=== PATIENT | female | born 1960 | race Caucasian/White ===

== ENCOUNTER 2018-05-10 09:45 | Outpatient (CLI) | payer OTHER | END 2018-05-10 09:46 | disposition home or self-care (01) | LOC: SC 09:45 | PROVIDERS: ATTEND Nurse Practitioner Family | DX: G47.33 Obstructive sleep apnea (adult) (pediatric) (principal); E66.01 Morbid (severe) obesity due to excess calories; Z68.42 Body mass index [BMI] 45.0-49.9, adult | CPT/HCPCS: 99204; 99212 ==

== ENCOUNTER 2018-12-01 01:56 | Emergency (ER) | payer OTHER ==
--- NOTE | 2018-12-01 02:40 | ED Physician Documentation ---
PD HPI DYSPNEA - Stated complaint Stated Complaint: COUGHING - Chief complaint Chief Complaint: Resp - History obtained from History obtained from: Patient - History of Present Illness Timing - onset: How many days ago (5) Timing - details: Gradual onset, Intermittant, Waxing and waning Pain level max: 0 Pain level now: 0 Improved by: Rest Worsened by: Exertion Associated symptoms: Fever (subjective (did not measure temperature at home)), Cough, Wheezing. 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 Decreasing relief with albuterol MDI. Tonight, she had severe dyspnea and coughing but this improved en route to ED and she feels well by the time of this H+P Review of Systems Constitutional: reports: Fever (subjective), Chills, Sweats. denies: Fatigue Cardiac: reports: Reviewed and negative Respiratory: reports: Dyspnea, Cough, Wheezing. 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 - Present Medications Home Medications: Ambulatory Orders Medication Instructions Recorded Confirmed Albuterol Sulf [Ventolin Hfa] 200 puffs INH 12/01/18 amLODIPine [Norvasc] 5 mg PO DAILY 12/01/18 12/01/18 predniSONE [Prednisone] 40 mg PO DAILY 4 Days #8 tablet 12/01/18 - Allergies Allergies/Adverse Reactions: Allergies Allergy/AdvReac Type Severity Reaction Status Date / Time Penicillins AdvReac Unknown Verified 12/01/18 02:08 Sulfa (Sulfonamide AdvReac Unknown Verified 12/01/18 02:07 Antibiotics) - Social History Does the pt smoke?: No Smoking Status: Never smoker Does the pt drink ETOH?: No Does the pt have substance abuse?: No - Immunizations Immunizations are current?: Yes - POLST Patient has POLST: No PD ED PE NORMAL - Vitals Vital signs reviewed: Yes - General General: Alert and oriented X 3, No acute distress, Well developed/nourished - HEENT HEENT: Moist mucous membranes, Pharynx benign - Neck Neck: Supple, no meningeal sign - Cardiac Cardiac: RRR, No murmur - Respiratory Respiratory: No respiratory distress, Clear bilaterally - Derm Derm: Normal color, Warm and dry - Extremities Extremities: No edema Results - Vitals Vitals: Vital Signs - 24 hr 12/01/18 12/01/18 12/01/18 01:57 02:21 03:48 Temperature 36.7 C Heart Rate 84 81 Respiratory 18 16 18 Rate Blood Pressure 147/74 H 149/91 H O2 Saturation 97 96 12/01/18 05:03 Temperature Heart Rate 87 Respiratory 18 Rate Blood Pressure 141/98 H O2 Saturation 95 Oxygen O2 Source Room air - Labs Labs: Laboratory Tests 12/01/18 02:55 Influenza A (Rapid) Negative Influenza B (Rapid) Negative - Rads (name of study) chest xray Radiology: Prelim report reviewed, See rad report PD MEDICAL DECISION MAKING - ED course Complexity details: reviewed results, re-evaluated patient, considered differential, d/w patient Departure - Departure Disposition: 01 Home, Self Care Clinical Impression: URI (upper respiratory infection) Condition: Good Instructions: ED Reactive Airway Disease, ED Upper Resp Infec No Abx Tx Follow-Up: [facility] [Provider Group] Prescriptions: predniSONE [Prednisone] 40 mg PO DAILY 4 Days #8 tablet Discharge Date/Time: 12/01/18 05:04
--- NOTE | 2018-12-01 04:33 | XRAY Report ---
Reason: dyspnea, cough Procedure Date: 12/01/2018 Accession Number: [id number] / [id number] Procedure: XR - Chest 2 View X-Ray CPT Code: 82387 FULL RESULT: EXAM: CHEST RADIOGRAPHY EXAM DATE: 12/01/2018 03:22 AM. CLINICAL HISTORY: Dyspnea, cough. COMPARISON: None. TECHNIQUE: 2 views. FINDINGS: Lungs/Pleura: There are minimal interstitial changes in the lingula otherwise the lungs are clear. There is a density in the left upper lobe which appears to represent calcified cartilage at the end of the first rib. There are no pleural effusions. Mediastinum: Heart and mediastinal contours are unremarkable. Other: None. IMPRESSION: 1. No acute infiltrates. RADIA
[2018-12-01 05:04] VITALS: BP 141/98
== END 2018-12-01 05:04 | disposition home or self-care (01) ==
LOC: ED 01:56
DX: J06.9 Acute upper respiratory infection, unspecified (principal); I10 Essential (primary) hypertension; J45.909 Unspecified asthma, uncomplicated
CPT/HCPCS: 71046; 87275; 87276; 99283

== ENCOUNTER 2019-08-05 10:48 | Outpatient (CLI) | payer OTHER ==
[2019-08-05 11:47] VITALS: BP 118/74
--- NOTE | 2019-08-05 11:47 | SLEEP CARE CONSULTATION ---
Information from patient questionnaire entered by Deja Colon. I have reviewed and concur with the information entered by Deja Colon. This document represents the service I personally performed and the decisions made by me, Della Coker, RN, MSN, AOC DIRECTOR COMBAT OPERATIONS OFFICER. History of Present Illness Previous diagnosis: Moderate, Obstructive Sleep Apnea-Hypopnea Syndrome AHI: 16.5 Reason for follow up: annual Equipment obtained from: [facility] (having difficulty getting supplies despite repeated attempts.) Mask style: Nasal (N20 - small) Mask brand: Resmed Backup mask available: Yes Last cushion change: 1 month Prior sleep studies: Yes CPAP Compliance Data - Data Reviewed with Patient Average duration of nightly device use: 6.5 hours Compliance rate %: 97 Current pressure setting (cmH2O): 7-10 Humidity settin-4 Heated hose setting: unknown Average residual AHI: 1.0 Subjective Patient concerns: reports: nasal congestion, epistaxis (just last 2 days, cold dry weather - scant amount noted in tissue when blew nose - feels due to dust from estate clearing. ). denies: aerophagia, mask discomfort, air blowing in eyes, mask leak noise, condensation in mask/hose, dry mouth, nose, throat Observed to snore while using device: No Current pressure setting perceived as: comfortable On therapy, patient: reports: sleeping better, awakening more refreshed, being more awake and alert during the day, more rested overall. denies: drowsiness while driving Initial [place] Sleepiness Scale score: 3 Current [place] Sleepiness Scale score: 2 Allergies and Home Medications Known drug allergies: Yes (see list ) Home medication list reviewed: Yes Allergy and home medication list: Medication Name (generic/name brand) Strength & Dosage Amlodipine Besylate 5mg tab one daily Albuterol MDI As needed Refresh Dry Eye As needed Olopatadine 0.1% ophthalmic solution As needed Flonase prn Review of Systems Review of systems same as previous: No (left breast lumpectomy - benign ) Physical Exam Blood Pressure: 118/74 Cuff size: wrist Heart Rate: 83 O2 Saturation: 96 Height: 5 ft 6.25 in Weight: 304 lb 6.4 oz Weight change since last visit: gained 12 pounds Body Mass Index: 48.7 BMI Classification: Obesity Class 3 Impression and Plan 1. Obstructive Sleep Apnea-Hypopnea Syndrome,moderate , with good treatment compliance and good apnea control. On CPAP therapy, the patient has better sleep quality and is more rested overall. For her supply concerns, she was recently informed that [facility] is no longer covered by her insurance. Thus I will have my implementation coordinator inform her of her options for new DME and I will complete a DWO prescription. To reduce condensation she was instructed to increase heated hose. She was also instructed to increase humidity for dryness and nasal congestion. Since patient has gained weight with stress of parents and estate resolution, I discussed how her current BMI is is 48 which can not only increase her apnea risk but CPAP pressure requirements and overall health risks. She is advised to lose weight and agreed. Her current auto CPAP ra nge should accomodate some weight loss as she is using the top range. Symptoms to report for pressure adjustment discussed. I advised her to reduce portions and modify content to whole foods and reduce refined foods. AANP handout for learning new skills for healthier weight given. She is also advised to discuss her weight goals with PCP and a referral to operating room manager. 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 Patient's apnea severity and rationale for treatment to reduce apnea, improve sleep quality and reduce cardiovascular and cerebrovascular events was reviewed. Since her apnea is more severe supine, she is advised to avoid supine sleep if unable to use CPAP and elevate head of bed 30-40 degrees to reduce apnea risk. I also reviewed the benefit of consistent device use of CPAP for hypertension. * Continue CPAP pressure at 7-10 cmH2O * Transfer to new DME * Adjust humidity and heated hose * Use saline nasal spray more frequently as directed. * Notify me if snoring with mask or feeling that the pressure is too much or too little * Attempt to lose weight * Return for follow up in 1 year, or sooner if concerns arise I spent 100% of this 35 minute visit face to face with the patient with greater than 50% of this was spent time counseling the patient and coordination of care.
== END 2019-08-05 10:49 | disposition home or self-care (01) ==
LOC: SC 10:48
PROVIDERS: ATTEND Nurse Practitioner Family
DX: G47.33 Obstructive sleep apnea (adult) (pediatric) (principal); E66.9 Obesity, unspecified; Z68.42 Body mass index [BMI] 45.0-49.9, adult
CPT/HCPCS: 99212; 99214

== ENCOUNTER 2020-01-19 22:16 | Emergency (ER) | payer OTHER ==
[2020-01-19 22:46] VITALS: BP 141/89
[2020-01-19] MEDS ORDERED: TETANUS/DIPHTHERIA/PERTUSSIS 0.5 ML SYRINGE IM ONE (23:10)
--- NOTE | 2020-01-19 23:24 | ED Physician Documentation ---
PD HPI UPPER EXT INJURY - Stated complaint Stated Complaint: FINGER LAC - Chief complaint Chief Complaint: Trauma Ext - History obtained from History obtained from: Patient (She cut her finger, the right fourth on a mandolin slicer at home just prior to arrival. 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 - Present Medications Home Medications: Ambulatory Orders Medication Instructions Recorded Confirmed Albuterol Sulf [Ventolin Hfa] 200 puffs INH 12/01/18 amLODIPine [Norvasc] 5 mg PO DAILY 12/01/18 12/01/18 - Allergies Allergies/Adverse Reactions: Allergies Allergy/AdvReac Type Severity Reaction Status Date / Time Penicillins AdvReac Unknown Verified 01/19/20 22:45 Sulfa (Sulfonamide AdvReac Unknown Verified 01/19/20 22:45 Antibiotics) - Social History Does the pt smoke?: No Smoking Status: Never smoker Does the pt drink ETOH?: No Does the pt have substance abuse?: No - Immunizations Immunizations are current?: Yes - POLST Patient has POLST: No PD ED PE NORMAL - Vitals Vital signs reviewed: Yes - General General: Alert and oriented X 3, No acute distress - Extremities Extremities: Other (There is a shallow flap laceration on the tip of the fourth finger pulp without nail involvement) - Neuro Neuro: Alert and oriented X 3, Normal speech Results - Vitals Vitals: Vital Signs - 24 hr 01/19/20 22:42 Temperature 36.8 C Heart Rate 83 Respiratory 20 Rate Blood Pressure 141/89 H O2 Saturation 96 Oxygen O2 Source Room air Procedures - Laceration (location) Right fourth finger Length in cm: 1 Wound type: Flap, Superficial Wound Preparation: Irrigated copiously NS Skin layer closure: Dermabond Other: Tetanus booster given Complexity: Simple Departure - Departure Disposition: 01 Home, Self Care Clinical Impression: Finger laceration Qualifiers: Encounter type: initial encounter Finger: ring finger Damage to nail status: without damage Foreign body presence: without foreign body Laterality: right Qualified Code(s): S61.214A - Laceration without foreign body of right ring finger without damage to nail, initial encounter Condition: Good Record reviewed to determine appropriate education?: Yes Instructions: ED Laceration Ext Skin Glue Comments: Reapply a little bit of superglue every day or 2 for the next week to keep it together. Return for new or worsening symptoms.
== END 2020-01-19 23:32 | disposition home or self-care (01) ==
LOC: ED 22:16
DX: S61.214A Laceration without foreign body of right ring finger without damage to nail, initial encounter (principal); W45.8XXA Other foreign body or object entering through skin, initial encounter; Y93.G1 Activity, food preparation and clean up; I10 Essential (primary) hypertension
CPT/HCPCS: 12001; 90471; 99283

== ENCOUNTER 2020-08-06 13:11 | Outpatient (CLI) | payer OTHER ==
--- NOTE | 2020-08-06 11:04 | SLEEP CARE CONSULTATION ---
Information from patient questionnaire entered by Ksenia Chakraborty. I have reviewed and concur with the information entered by Ksenia Chakraborty. This document represents the service I personally performed and the decisions made by me, Della Coker, RN, MSN, LABORER VEGETABLE FARM. History of Present Illness Service Date and Time: 08/06/2020 1030 Previous diagnosis: Moderate, Obstructive Sleep Apnea-Hypopnea Syndrome AHI: 16.5 (in 2017) Reason for follow up: annual (last seen 08/2019) Equipment type: CPAP Equipment obtained from: [employer] (getting supplies as needed since transfer from [facility]) Mask style: Nasal Mask brand: Resmed (N20 - small) Backup mask available: Yes Last cushion change: 1 week Prior sleep studies: Yes Year and Where: [address] [place] [address] Sleep Lab Type of Sleep Study: Polysomnography CPAP Compliance Data - Data Reviewed with Patient Average duration of nightly device use: 7 hr 18 min Compliance rate %: 99 (180 days) Current pressure setting (cmH2O): 7-10 Humidity settin Heated hose setting: ? Average residual AHI: 1.1 Subjective Patient concerns: reports: aerophagia (once only), mask discomfort (noted right before needs to change mask), air blowing in eyes (noted right before needs to change mask cushion ), mask leak noise (Mask discomfort and air leaks right before changes every two weeks.), condensation in mask/hose (nightly waking her to moisture in mask even with reduction of humidity), nasal congestion (especially since recent sinus infection), dry mouth, nose, throat (dry mouth and nose that was resolved with increased humidity). denies: epistaxis Observed to snore while using device: No Current pressure setting perceived as: comfortable On therapy, patient: reports: sleeping better, awakening more refreshed, being more awake and alert during the day, more rested overall. denies: drowsiness while driving Initial [place] Sleepiness Scale score: 3 (in 2018) Current [place] Sleepiness Scale score: 1 Allergies and Home Medications Known drug allergies: Yes Home medication list reviewed: No (started thyroid medication - unknown name) Review of Systems Review of systems same as previous: Yes Physical Exam Height: 5 ft 6 in Weight: 285 lb (home weight) Weight change since last visit: lost 20 pounds Body Mass Index: 46.0 BMI Classification: Morbidly Obese Impression and Plan 1. Obstructive Sleep Apnea-Hypopnea Syndrome, moderate, with good treatment compliance and good apnea control. On CPAP therapy, the patient has better sleep quality and is more rested overall. Nasal congestion can be reduced with increasing the CPAP humidity and heated hose as discussed so to reduce condensation effects currently having. Saline nasal spray can also be used prior to CPAP to clear nasal secretions and wash off any nasal allergens to facilitate nasal breathing. In addition, a steamy shower before bed will often assist nasal drainage. I also discussed use of a sinus flush if saline nasal spray is insufficient that can be used to reduce symptoms. This treatment can also be used routinely as discussed. Patient instructed on importance of using distilled or cooled boiled tap water per manual instructions. To reduce mask leaks, patient advised to wash mask cushion daily rather intermittently. This can be done after brushing teeth to incorporate in her daily routine easier. Patient has lost about 20 pounds since last seen with a goal of losing about 140 more pounds slowly by changing diet. She is working with a PA for her weight management. Patient was praised for her progress. Currently patients BMI is 46.0 obesity class Morbidly Obese. Obesity increases the risk of apnea, CPAP pressure requirements and overall health risks especially cardiovascular and diabetes. I also reviewed benefit of weight loss to her blood pressure. She is monitoring blood pressure and reporting to her provider in hopes to reduce hypertensive medication in future. Thus patient is advised to continue to lose weight. The patient's CPAP pressure was changed to [id number] to accommodate future weight loss with rationale discussed. Symptoms to report for additional pressure adjustment discussed. If patient device starts making clicking noise again, she is advised to contact [facility] for trouble shooting. If repair needed, a loaner device can be given while her CPAP is repaired. Travel with CPAP discussed to prepare for upcoming trip. CPAP can be taken on most airlines as a free medical carry on. Please check your airline. It is also recommended to bring an extra mask or cushion in the event of breakage as well as an extra filter. Patient's apnea severity and rationale for treatment to reduce apnea, improve sleep quality and reduce cardiovascular and cerebrovascular events was reviewed. I also reviewed the benefit of consistent device use of CPAP for hypertension. * * Change auto CPAP pressure to 6-10 cmH2O * Implement methods to reduce nasal congestion, condensation, mask leaks / irritation and improve CPAP travel. * Notify me if snoring with mask or feeling that the pressure is too much or too little * Continue to lose weight * Call this office if any problems using CPAP * Return for follow up in 1 year , or sooner if concerns arise Visit Type: Telehealth Video Video Type: Doximity Patient Location: Home Location of Provider: Home Patient agrees and consents to this telehealth visit type: Yes Patient agrees to have their insurance billed: Yes Time Spent with Patient (minutes): 31 Provider Statement: I spent 100% of the Telehealth Video Call with the patient with greater than 50% spent counseling the patient and coordination of care.
== END 2020-08-06 13:12 | disposition home or self-care (01) ==
LOC: SC 13:11
PROVIDERS: ATTEND Nurse Practitioner Family
DX: G47.33 Obstructive sleep apnea (adult) (pediatric) (principal); E66.01 Morbid (severe) obesity due to excess calories; Z68.42 Body mass index [BMI] 45.0-49.9, adult

== ENCOUNTER 2021-08-31 08:00 | Outpatient (CLI) | payer OTHER | END 2021-08-31 23:59 | LOC: LAB 08:00 | PROVIDERS: ATTEND Physician Assistant | DX: U07.1 COVID-19 (principal) ==

== ENCOUNTER 2023-01-24 11:31 | Outpatient (CLI) | payer OTHER ==
--- NOTE | 2023-01-24 12:39 | SLEEP CARE CONSULTATION ---
Information from patient questionnaire entered by Brooke Grimes. I have reviewed and concur with the information entered by Brooke Grimes. This document represents the service I personally performed and the decisions made by me, Jyoti Jalloh ARNP. History of Present Illness Service Date and Time: 01/24/2023 1131 Previous diagnosis: Moderate, Obstructive Sleep Apnea-Hypopnea Syndrome AHI: 16.5 (in 2016) Reason for follow up: annual (LAST SEEN 08/2020) Equipment type: CPAP (RESMED Airsense 10, s/u 05/2017; SD CARD NEEDED) Equipment obtained from: [employer] (getting supplies as needed) Mask style: Nasal Mask brand: Resmed (N20) Backup mask available: Yes (old mask) Last cushion change: yesterday Prior sleep studies: Yes Year and Where: [facility] Sleep Lab Type of Sleep Study: Polysomnography HPI additional information: MAICOL KNIGHT was diagnosed to have moderate, AHI 16.5, obstructive sleep apnea-hypopnea syndrome and returned today for CPAP therapy annual follow-up. Sleep Study - Results Type of Sleep Study: Polysomnography Prior sleep studies: Yes Year and Where: [address] [place] [address] Sleep Lab CPAP Compliance Data - Data Reviewed with Patient Average duration of nightly device use: 7 HRS 15 MINS Compliance rate %: 100 (10/25/22-01/02/23; 90/90 days used) Current pressure setting (cmH2O): 6-10 Average residual AHI: 0.9 Average large leak: 4.1 L/min Subjective Patient concerns: reports: air blowing in eyes (when mask needs to be changed). denies: aerophagia, mask discomfort, mask leak noise, condensation in mask/hose, nasal congestion (sometimes, then blow nose and nasal spray if needed), dry mouth, nose, throat, epistaxis, other Observed to snore while using device: No Current pressure setting perceived as: comfortable On therapy, patient: reports: sleeping better, awakening more refreshed, being more awake and alert during the day, more rested overall. 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 Obstructive Sleep Apnea-Hypopnea Syndrome, moderate, with good treatment compliance and good apnea control. On CPAP therapy, the patient has better sleep quality and is more rested overall. Patient has significant improvement of their sleep apnea and is satisfied with current CPAP therapy. She has an Airsense 10 that was last updated in 2017. The patients CPAP is over 5 years old and of reasonable use. Thus, the CPAP will be updated. A DWO prescription will be made. Compliance guidelines for new device and follow up discussed. Patient denies problems with oral dryness, nasal congestion, epistaxis, skin irritation or aerophagia. Patient's apnea severity and rationale for treatment to reduce apnea, improve sleep quality and reduce cardiovascular and cerebrovascular events was reviewed. I also reviewed the benefit of consistent device use of CPAP for hypertension. Patient asking about getting a travel CPAP. I explained to her that this would be an [id number] expense if she would like to obtain one. She states she would like to and a prescription was written and given to patient. 2. Obesity, unspecified. Currently patients BMI is 49.7. Obesity increases the risk of apnea, CPAP pressure requirements and overall health risks especially cardiovascular and diabetes. Thus patient is advised to continue to try to lose weight. The patient's CPAP pressure range should accommodate some weight loss. Symptoms to report for additional pressure adjustment discussed. * Continue auto CPAP pressure at 12-17 cmH2O * Update machine * Update supplies * Travel CPAP prescription given to patient per her request * Notify me if snoring with mask or feeling that the pressure is too much or too little * Attempt to lose weight * Call this office if any problems using CPAP * Return for follow up one month after obtaining new device, or sooner if concerns arise Counseling Topics: Spare mask, Weight loss health impact Prescriptions: Auto CPAP, Device supplies Visit Type: In Office Time Spent with Patient (minutes): 23 Provider Statement: I spent 100% of the Face to Face Visit with the patient with greater than 50% spent counseling the patient and coordination of care.
[2023-01-24 12:40] VITALS: BP 132/76
== END 2023-01-24 11:32 | disposition home or self-care (01) ==
LOC: SC 11:31
PROVIDERS: ATTEND Nurse Practitioner Family
DX: G47.33 Obstructive sleep apnea (adult) (pediatric) (principal); E66.01 Morbid (severe) obesity due to excess calories; Z68.42 Body mass index [BMI] 45.0-49.9, adult
CPT/HCPCS: 99212; 99213

== ENCOUNTER 2023-11-23 10:47 | Outpatient (CLI) | payer OTHER ==
--- NOTE | 2023-11-23 11:26 | Sleep Patient Instructions ---
Sleep Center Visit Summary - Patient Visit Information Reason for Visit: First compliance with new device - Patient Instructions Additional Instructions: You were here for follow up of CPAP therapy. You will be continued on CPAP therapy with pressure at 7-11 cmH2O. You should follow up with sleep care in 12 months. You may contact us sooner for any questions or concerns. - Clinic Information Contact: [facility] [address] [place] [address] [email or web address] T: [phone]
--- NOTE | 2023-11-23 11:28 | SLEEP CARE CONSULTATION ---
Information from patient questionnaire entered by Cynthia Grimes. I have reviewed and concur with the information entered by Cynthia Grimes. This document represents the service I personally performed and the decisions made by me, Jyoti Jalloh ARNP. History of Present Illness Service Date and Time: 11/23/2023 1047 Previous diagnosis: Moderate, Obstructive Sleep Apnea-Hypopnea Syndrome AHI: 16.5 (in 2017) Reason for follow up: first compliance after device update Equipment type: CPAP (ResMed Airsense 11, s/u 02/23/23) Equipment obtained from: [employer] (getting supplies as needed) Mask style: Nasal Mask brand: Resmed ([id number]) Backup mask available: Yes Last cushion change: 1-2 weeks ago Prior sleep studies: Yes Year and Where: 2016 - [facility] Type of Sleep Study: Polysomnography HPI additional information: MAICOL KNIGHT was diagnosed to have moderate, AHI 16.5, obstructive sleep apnea-hypopnea syndrome and returned today for CPAP therapy first compliance after updating device follow-up. Sleep Study - Results Type of Sleep Study: Polysomnography Prior sleep studies: Yes Year and Where: [facility] - [facility] CPAP Compliance Data - Data Reviewed with Patient Average duration of nightly device use: 7 HRS 39 MINS Compliance rate %: 100 (10/22/23-11/20/23; days used) Current pressure setting (cmH2O): 7-11 Average residual AHI: 1.3 Central apnea: 0.1 Obstructive apnea: 0.3 Hypopnea: 0.9 Average large leak: 2.6 L/min Subjective Patient concerns: reports: air blowing in eyes (just needs to change cushion), nasal congestion (due to allergies), dry mouth, nose, throat (occasional dry mouth and throat). denies: aerophagia, mask discomfort, mask leak noise, condensation in mask/hose, epistaxis Observed to snore while using device: No Current pressure setting perceived as: comfortable On therapy, patient: reports: sleeping better, awakening more refreshed, being more awake and alert during the day, more rested overall. denies: drowsiness while driving Initial [place] Sleepiness Scale score: 3 (in 2018) Current [place] Sleepiness Scale score: 0 Allergies and Home Medications Known drug allergies: Yes (as listed) Drug allergies reviewed: Yes Home medication list reviewed: Yes (no changes) Allergy and home medication list: Allergies Penicillins Adverse Reaction (Verified 11/21/23 15:05) Unknown Sulfa (Sulfonamide Antibiotics) Adverse Reaction (Verified 11/21/23 15:05) Unknown Review of Systems Review of systems same as previous: Yes (gained weight back) Physical Exam Vital signs obtained and entered by: JYOTI PARKER Blood Pressure: 157/90 Cuff size: regular (left forearm) Heart Rate: 76 O2 Saturation: 97 Height: 5 ft 6 in Weight: 317 lb Body Mass Index: 51.1 BMI Classification: Morbidly Obese Impression and Plan 1. Obstructive Sleep Apnea-Hypopnea Syndrome, moderate, with good treatment compliance and good apnea control. On CPAP therapy, the patient has better sleep quality and is more rested overall. Patient has significant improvement of their sleep apnea and is satisfied with current CPAP therapy. Patient denies problems with oral dryness, nasal congestion, epistaxis, skin irritation or aerophagia. Patient's apnea severity and rationale for treatment to reduce apnea, improve sleep quality and reduce cardiovascular and cerebrovascular events was reviewed. I also reviewed the benefit of consistent device use of CPAP for hypertension. 2. Obesity, unspecified. Currently patients BMI is 51.1. Obesity increases the risk of apnea, CPAP pressure requirements and overall health risks especially cardiovascular and diabetes. Thus patient is advised to continue to try to lose weight. * Continue auto CPAP pressure at 7-11 cmH2O * Notify me if snoring with mask or feeling that the pressure is too much or too little * Attempt to lose weight * Call this office if any problems using CPAP * Return for follow up in 12 months, or sooner if concerns arise Counseling Topics: Weight loss health impact Follow up with Sleep Care in: 1 year Visit Type: In Office Time Spent with Patient (minutes): 29 Provider Statement: I spent 100% of the Face to Face Visit with the patient with greater than 50% spent counseling the patient and coordination of care.
[2023-11-23 11:43] VITALS: BP 157/90; O2SAT 97
== END 2023-11-23 10:48 | disposition home or self-care (01) ==
LOC: SC 10:47
PROVIDERS: ATTEND Nurse Practitioner Family
DX: G47.33 Obstructive sleep apnea (adult) (pediatric) (principal); E66.01 Morbid (severe) obesity due to excess calories; Z68.43 Body mass index [BMI] 50.0-59.9, adult
CPT/HCPCS: 99212; 99213